=== PATIENT | male | born 1930 | race Caucasian/White ===

== ENCOUNTER 2016-04-26 23:55 | Inpatient (IN) | payer MEDICARE, OTHER ==
--- NOTE | ~2016-04-26 | DS ---
Unit #: [id number] #: [id number] Patient: RICO COVARRUBIAS [id number] [address] [address] [id number] I MR#: [id number] NAME: RICO COVARRUBIAS ROOM: 566 Age: 85 Sex: M Admission Date: 04/27/2016 : 1930 Discharge Date: 04/30/2016 Attending Physician: Joo Stallworth M.D. Primary Care Physician: Skyla Deras M.D. DISCHARGE SUMMARY ADMITTING DIAGNOSES 1. Tfyqt-zj-sqyalmj renal failure secondary to obstructive uropathy. 2. Xnkhf-mt-kqewflp renal failure. 3. Possible sepsis. 4. History of cerebrovascular accident. DISCHARGE DIAGNOSES 1. Escherichia coli urinary tract infection, complicated, stable. 2. Acute kidney injury on chronic kidney disease stage 2 to 3. 3. Chronic immobility. 4. Mild acute anemia. 5. Elevated INR, resolved. 6. Atrial fibrillation with controlled ventricular rate. 7. Severe sepsis upon admission per sepsis management protocol. 8. Bilateral ureteral stones, status post placement of bilateral ureteral stents and chronic suprapubic catheter. 9. 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 10. Subtherapeutic INR. CONSULTS 1. Brett Pickard M.D., nephrology. 2. Mathew Cormier M.D., urology service. 3. Speech therapist. PROCEDURES Cystoscopy, bilateral ureteral stent placement for bilateral ureteral stones and bilateral hydronephrosis. CONDITION Stable. DIAGNOSTIC STUDIES LABORATORY: WBC 10.6, hemoglobin 12.5, hematocrit 38.8, sodium 137, potassium 3.6, chloride 112, CO2 24, glucose 90, BUN 22, creatinine 1.2, calcium is 7.8, INR 1.4, PT 15.4. Urine culture final E. coli greater than 100,000 CFU per mL sensitive to ceftriaxone. Blood cultures preliminary x2 no growth after 24 hours. Final blood cultures pending at this time. Ammonia 35. Lactic acid on admission 2.1. IMAGING: On 04/27/16 CT of the head. Indication: Mental status changes with increasing confusion. Impression: Motion degraded but no acute intracranial abnormalities. There is atrophy with chronic small vessel Unit #: [id number] #: [id number] Patient: RICO COVARRUBIAS ischemic disease in the white matter. Ventriculomegaly probably secondary to central atrophy rather than normal pressure hydrocephalus. No basis for comparison. CT of the abdomen and pelvis. Impression: Numerous bilateral nonobstructing stones in the kidneys. A small 3.0 mm stone in the proximal ureter on the right and numerous small stones in the left mid ureter. Mild hydronephrosis and hydroureter on both sides. Stones are not clearly the point of obstruction. May be due to abnormal appearing urinary bladder. Suprapubic bladder catheter decompressed in the bladder. Bladder demonstrates thick wall and fairly intense surrounding fat stranding compatible with cystitis. Gas bubbles noted in the bladder and a few in the right renal collecting system. Ascending infection is not excluded although these bubbles could be due to the catheter. Correlate urinalysis results and physical exam findings. Cholelithiasis. Diffuse colonic diverticulosis without definitive evidence for diverticulitis. Normal appendix. Enlarged prostate. Diffuse atherosclerotic disease. Portable chest exam 04/27/16. Impression: Cardiomegaly with CABG change. Minimal atelectasis or infiltrate noted in the bases. DIET Speech therapist recommendation for diet given communication deficits and history of stroke: Regular diet consistency with thin liquids. Upright for all oral intake. Medications whole in applesauce. Advised patient to eat slowly. DISCHARGE MEDICATIONS 1. Tylenol 500 mg p.o. b.i.d. p.r.n. pain. 2. Coumadin 3 mg p.o. q.h.s. Start 05/01/16 as dose will be given prior to discharge from hospital today with target INR of 2.0 to 3.0. 3. Zoloft 50 mg p.o. q.a.m. 4. Lorazepam 1 mg p.o. q.h.s. 5. Amlodipine besylate 5 mg p.o. q.h.s. 6. Milk of magnesia 30 mL p.o. daily p.r.n. constipation. 7. Omnicef 300 mg p.o. b.i.d. for four more days. 8. Prilosec 20 mg p.o. q.h.s. DISCHARHGE ORDERS 1. Regular diet as directed by speech therapy recommendations as dictated above. 2. Patient is to have a PT/INR drawn tomorrow [facility]. The results are to be called to the patient's admitting physician for further PT/INR and Coumadin management orders. This includes an order for tomorrow's dose of Coumadin. HOSPITAL COURSE The patient is an 85-year-old male with history of multiple medical issues including history of CVA with aphasia and right-sided weakness, who presented to [facility] on the date of admission after having been transferred from [facility], where he is a resident, for altered mental status and lethargy. Patient was evaluated in the emergency department and found to be in acute renal failure as well as possible obstructive uropathy. Patient also met criteria for severe sepsis on admission per sepsis management protocol as his lactic acid was greater than 2.0 at 2.1. Sepsis management protocol was initiated. Patient was started on IV vancomycin with pharmacy to dose. He also received IV Zosyn and Rocephin Unit #: [id number] #: [id number] Patient: RICO COVARRUBIAS in the emergency department. Prior to initiation of IV antibiotic therapy blood cultures and urine culture were collected. Preliminary blood cultures returned with no growth and final blood cultures are pending at this time. Urine culture returned positive for E. coli greater than 100,000 CFU per mL sensitive to. Dr. Cormier was consulted from service and patient was taken to the operating room for bilateral ureteral stent placement. He tolerated the procedure well. He has been changed to p.o. Omnicef as per med rec. He is to continue this medication for four additional days per order of Dr. Stallworth. The patient was evaluated by the speech therapist on two occasions for history of CVA with aphasia and suspicion of dysphagia. At this time the patient is tolerating a regular diet based on the above speech therapy restrictions and recommendations. These are to continue at the rehab facility to decrease risk of aspiration. Patient experienced acute kidney injury on chronic kidney disease 2 to 3 secondary to severe sepsis and ureteral obstruction with urinary tract infection. The patient was evaluated by Dr. Pickard with the renal service. The patient's renal function has improved status post ureteral stent placement and treatment of urinary tract infection. The patient is evaluated by Dr. Pickard today and has been cleared for discharge from his standpoint. Mild acute anemia. The patient's hemoglobin and hematocrit are stable today. Patient has a history of afib with controlled ventricular rate and is on Coumadin chronically. The patient's INR was elevated at the time of admission at 3.2. The patient's Coumadin has been held. INR today is 1.4. Patient will receive a dose of Coumadin 3 mg p.o. prior to discharge today. PT/INR has been ordered to be collected tomorrow at rehab. The patient's physician at rehab is to be called with PT/INR results for further orders for daily Coumadin dose and PT/INR collections. Patient's vital signs and lab work are stable. He is tolerating food and fluids at this time. He has been evaluated by Dr. Stallworth and cleared for discharge back to [facility] where he is a resident at this time. Please refer to Alex and Annabel for complete details. Dictated by... Melany Mix A.P.R.N. for Melissa Mota/renita TD: 04/30/2016 16:05 JOB #: [id number] Unit #: [id number] #: [id number] Patient: RICO COVARRUBIAS DISCHARGE SUMMARY X Melany Mix [employer] X DISCHARGE SUMMARY
--- NOTE | ~2016-04-26 | EKG ---
PATIENT: RICO COVARRUBIAS UNIT #: [id number] Ventricular Rate: 87 BPM Atrial Rate: 104 BPM QRS Duration: 98 ms Q-T Interval: 364 ms QTC Calculation(Bezet): 438 ms Calculated R [place]: -18 degrees Calculated T [place]: -25 degrees Diagnosis Line: Atrial fibrillation Diagnosis Line: Septal infarct (cited on or before 21-NOV-2014) Diagnosis Line: Inferior infarct , age undetermined Diagnosis Line: Abnormal ECG Diagnosis Line: When compared with ECG of 21-NOV-2014 12:27, Diagnosis Line: Inferior infarct is now Present Diagnosis Line: Diagnosis Line: Confirmed by ZOE COLIN MD ([id number]) on Diagnosis Line: 04/30/2016 3:58:27 PM INTERPRETING MD: DIXIE DUBON
--- NOTE | ~2016-04-26 | CT4 ---
[facility] A Service of [facility] & [facility] RADIOLOGY TEXT RESULTS PATIENT: RICO COVARRUBIAS LOCATION: [facility] 566-01 : 31 UNIT #: [id number] AGE: [address]: Skyla Deras MD SEX: M ORDER DR: [id number] [facility] [address] [place], [place] [address] [id number] I MR#: [id number] Acc #: [id number] NAME: RICO COVARRUBIAS : 1930 SEX: M STUDY DATE/TIME: 04/27/2016 01:51 UNIT: [facility] ROOM: [facility] STUDY DESCRIPTION: CT Abd and Pelv Wo Cont Attending Physician: Skyla Deras M.D. Ordering Physician: Wolf Kumari M.D. Primary Care Physician: Skyla Deras M.D. MEDICAL IMAGING REPORT This report is preliminary unless electronic signature is present EXAM CT abdomen and pelvis, 04/27 at 01:51 INDICATION Hematuria and increasing weakness and lethargy today. TECHNIQUE Axial noncontrast images were obtained through the abdomen and pelvis. Multiplanar reformats were obtained. This CT exam was performed with one or more of the following radiation dose reduction techniques: automatic exposure control, adjustment of mA and/or kV according to patient size, and iterative reconstruction. COMPARISON None FINDINGS ABDOMEN: There is some mild atelectasis in the lung bases. Heart is enlarged. The gallbladder is contracted around numerous stones. No biliary obstruction is seen. There is atherosclerotic disease. Multiple bilateral renal stones are present. One of the larger on the right side measures up to 11.0 mm in size. Multiple smaller stones are noted in the left kidney, including stones within the left renal pelvis. There is mild bilateral hydronephrosis and hydroureter. There is a small stone in the right proximal ureter measuring about 3.0 mm in size. Multiple smaller stones are layering dependently in the left mid ureter. These stones cover a craniocaudal length of up to 2.6 cm. However, stones on both sides do not appear to be causing the hydronephrosis. This hydronephrosis may have been secondary to a bladder outlet obstruction. Of note, the patient does have a decompressed urinary bladder from a suprapubic catheter. It appears well positioned. Bilateral renal cysts are present. Unenhanced solid organs are otherwise normal. Exam is motion degraded and STS. [facility] A Service of [facility] & [facility] RADIOLOGY TEXT RESULTS PATIENT: RICO COVARRUBIAS LOCATION: [facility] 566-01 : 31 UNIT #: [id number] AGE: [address]: Skyla Deras MD SEX: M ORDER DR: there is colonic diverticulosis without focal diverticulitis. Small bowel grossly normal. PELVIS: There is diffuse sigmoid diverticulosis without convincing acute diverticulitis. The appendix is normal as is the distal small bowel. There is a fat-containing umbilical hernia. Urinary bladder is abnormal demonstrating wall thickening and adjacent fat stranding consistent with cystitis. The bladder is currently decompressed by a suprapubic catheter. Multiple gas bubbles in the bladder could be due to infection or could have been introduced via the catheter. Correlate with urinalysis results. Fairly pronounced fat stranding in the left lower quadrant may also be related to the bladder rather than the GI tract. There is extensive degenerative disease in the lumbar spine with an old L1 compression fracture. IMPRESSION 1. There are numerous bilateral nonobstructing stones in the kidneys. Additionally, there is a small 3.0 mm stone in the proximal ureter on the right and there are numerous small stones in the left mid ureter. There is mild hydronephrosis and hydroureter on both sides, but the stones are not clearly the point of obstruction. This may be due to the abnormal appearing urinary bladder. 2. There is a suprapubic bladder catheter which is decompressed in the bladder. However, the bladder demonstrates a thick wall and there is fairly intense surrounding fat stranding compatible with cystitis. Additionally, gas bubbles are noted in the bladder and there are few gas bubbles in the right renal collecting system. Ascending infection is not excluded although these bubbles could be due to the catheter. Correlate urinalysis results and physical exam findings. 3. Cholelithiasis. 4. Diffuse colonic diverticulosis without definitive evidence for diverticulitis. Normal appendix. 5. Enlarged prostate. Correlate with physical exam findings and PSA values. 6. Diffuse atherosclerotic disease. Dictated by... Marques Gay Jr., M.D. THIS IS AN ELECTRONICALLY VERIFIED REPORT Marques Gay Jr., M.D. at 04/27/2016 11:00 PM DIAZ/lubna TD: 04/27/2016 16:54 JOB #: [id number] MEDICAL IMAGING REPORT COPY
--- NOTE | ~2016-04-26 | CT71 ---
[facility] A Service of [facility] & [facility] RADIOLOGY TEXT RESULTS PATIENT: RICO COVARRUBIAS LOCATION: [facility] 566-01 : 31 UNIT #: [id number] AGE: [address]: Skyla Deras MD SEX: M ORDER DR: [id number] [facility] [address] [place], [place] [address] [id number] I MR#: [id number] Acc #: [id number] NAME: RICO COVARRUBIAS : 1930 SEX: M STUDY DATE/TIME: 04/27/2016 01:53 UNIT: [facility] ROOM: [facility] STUDY DESCRIPTION: CT Head Wo Contrast Attending Physician: Skyla Deras M.D. Ordering Physician: Wolf Kumari M.D. Primary Care Physician: Skyla Deras M.D. MEDICAL IMAGING REPORT This report is preliminary unless electronic signature is present EXAM Head CT, 04/27 at 01:53 INDICATION Mental status changes and increasing confusion today. TECHNIQUE This CT exam was performed with one or more of the following radiation dose reduction techniques: automatic exposure control, adjustment of mA and/or kV according to patient size, and iterative reconstruction. FINDINGS Axial images were obtained from the base to the vertex without contrast. No comparison. The study is motion degraded. There is generalized atrophy. Ventriculomegaly is probably secondary to centralized atrophy. Advanced chronic small vessel ischemic changes are present in the white matter. There is no acute infarct or hemorrhage. There are no masses. There is an old left parietal infarct. Atherosclerotic calcifications are noted in the vertebral arteries and carotid siphons. No skull fracture. IMPRESSION Motion degraded exam, but no acute intracranial abnormalities are seen. There is atrophy with chronic small vessel ischemic disease in the white matter. Ventriculomegaly is probably secondary to central atrophy rather than normal pressure hydrocephalus. I have no basis for comparison. Dictated by... Marques Gay Jr., M.D. THIS IS AN ELECTRONICALLY VERIFIED REPORT Marques Gay Jr., M.D. at 04/27/2016 11:00 PM STS. [facility] A Service of [facility] & [facility] RADIOLOGY TEXT RESULTS PATIENT: RCIO COVARRUBIAS LOCATION: [facility] 566-01 : 31 UNIT #: [id number] AGE: [address]: Skyla Deras MD SEX: M ORDER DR: Edilia TD: 04/27/2016 16:52 JOB #: [id number] MEDICAL IMAGING REPORT COPY
--- NOTE | ~2016-04-26 | CO ---
Unit #: [id number] #: [id number] Patient: RICO COVARRUBIAS [id number] [place], [place] [address] [id number] I MR#: [id number] NAME: RICO COVARRUBIAS ROOM: 50244 Age: 85 Sex: M Admission Date: 04/27/2016 : 1930 Attending Physician: Skyla Deras M.D. Primary Care Physician: Skyla Deras M.D. Consultation Date: 04/27/2016 CONSULTATION REPORT REASON FOR CONSULTATION Urosepsis, ureteral stones. HISTORY OF PRESENT ILLNESS Mr. Covarrubias is an 85-year-old male who presented to the emergency room with mental status changes. Workup in the ER demonstrated an elevated white blood cell count to 29.0, and elevated lactic acid level of 2.3, and elevated creatinine of 2.1 and concern for urosepsis. Of note, the patient has a history of an indwelling suprapubic catheter. He also has a history of CVA, aphasia, and CABG. He is a poor historian, so the history was obtained from family members. PAST MEDICAL HISTORY 1. CVA (aphasia). 2. History of CABG. 3. Neurogenic bladder. 4. History of CVA with right-sided paralysis. 5. Current UTIs. 6. Urolithiasis. 7. History of laser ablation of the prostate. 8. Suprapubic tube placement in 2014. SOCIAL HISTORY Former smoke. Never alcohol consumption. Lives in half-way. MEDICATIONS AND ALLERGIES Per the ER intake sheet. PHYSICAL EXAMINATION VITAL SIGNS: Pulse 69, O2 sat 96%. GENERAL: Awake, answering questions normally. ABDOMEN: Soft, nontender, nondistended. SP tube in place. Urine yellow and clear. EXTREMITIES: Demonstrate minimal edema. No cyanosis. LABS As above. IMAGING STUDIES Report was reviewed audibly and details were described above. ASSESSMENT AND PLAN 1. 85-year-old man with a history of neurogenic bladder and indwelling SP tube, found to be in urosepsis with bilateral ureteral stones with Unit #: [id number] #: [id number] Patient: RICO COVARRUBIAS bilateral ureteral stones and possible hydronephrosis bilaterally. I had a discussion with the patient's family regarding treatment options including observation versus cystoscopy and ureteral stent placement. We discussed that should we fail to place stents, and obstructive pyelonephritis exists, this could be a lethal infection. The family expressed that they would like to have ureteral stents placed, and we will proceed with that procedure. 2. Continue Zosyn. 3. NPO. 4. (1) cystoscopy and bilateral ureteral stent placement. Dictated by... Melissa Conrad/kristi TD: 04/27/2016 12:27 JOB #: [id number] CONSULTATION REPORT X X CONSULTATION REPORT
--- NOTE | ~2016-04-26 | CR72 ---
[facility] A Service of [facility] & [facility] RADIOLOGY TEXT RESULTS PATIENT: RICO COVARRUBIAS LOCATION: [facility] 566-01 : 31 UNIT #: [id number] AGE: [address]: Skyla Deras MD SEX: M ORDER DR: [id number] [facility] [address] [place], [place] [address] [id number] I MR#: [id number] Acc #: [id number] NAME: RICO COVARRUBIAS : 1930 SEX: M STUDY DATE/TIME: 04/27/2016 00:20 UNIT: [facility] ROOM: [facility] STUDY DESCRIPTION: CR Chest Single View Portable Attending Physician: Skyla Deras M.D. Ordering Physician: Wolf Kumari M.D. Primary Care Physician: Skyla Deras M.D. MEDICAL IMAGING REPORT This report is preliminary unless electronic signature is present EXAM Portable chest. DATE OF EXAM 04/27/2016, 0020 hours. INDICATIONS Shortness of air and weakness for the last 2 days. FINDINGS AP portable views of the chest were obtained. No comparison. Heart is enlarged. Patient is status post CABG. Minimal atelectasis or infiltrate in the bases. The lungs otherwise are clear. There is no pneumothorax. IMPRESSION Cardiomegaly with CABG change. Minimal atelectasis or infiltrate noted in the bases. Dictated by... Marques Gay Jr., M.D. THIS IS AN ELECTRONICALLY VERIFIED REPORT Marques Gay Jr., M.D. at 04/27/2016 11:00 PM DIAZ/bharat TD: 04/27/2016 16:38 JOB #: [id number] MEDICAL IMAGING REPORT COPY
--- NOTE | ~2016-04-26 | HP ---
Unit #: [id number] #: [id number] Patient: RICO COVARRUBIAS [id number] [address] [id number] I MR#: [id number] NAME: RICO COVARRUBIAS ROOM: 10087 Age: 85 Sex: M Admission Date: 04/26/2016 : 1930 Attending Physician: Skyla Deras M.D. Primary Care Physician: Skyla Deras M.D. HISTORY AND PHYSICAL CHIEF COMPLAINT 1. Altered mental status. 2. Hematuria. HISTORY OF PRESENT ILLNESS The patient is an 85-year-old male with a history of coronary artery disease and hypertension who basically had altered mental status and was lethargic. He had blood in his urine. He was seen and evaluated in the emergency room and was found to be in acute renal failure. He was seen by nephrology. He had acute on chronic renal failure. He was started on IV antibiotics. Urology consult was obtained, and he is currently status post cystoscopy with ureteral stent placement. The patient is unable to provide a history at this time. Surgery has been uneventful. PAST MEDICAL HISTORY 1. Coronary artery disease. 2. Hypertension. 3. Coronary artery bypass graft. 4. History of kidney stones in the past. 5. History of CVA. 6. Atrial fibrillation. 7. Depression. 8. Benign prostatic hypertrophy. 9. Anxiety. 10. Anticoagulation with Coumadin for his atrial fibrillation. ALLERGIES No known drug allergies. MEDICATIONS 1. Zoloft 50 mg p.o. every morning. 2. Amlodipine 5 mg p.o. at bedtime. 3. Tylenol Extra Strength Arthritis. 4. Prilosec 20 mg p.o. at bedtime. 5. Lorazepam 1 mg at bedtime. 6. Coumadin 3 mg p.o. at bedtime. FAMILY HISTORY Family history is noncontributory to the presenting complaint. SOCIAL HISTORY No tobacco use, alcohol use or illicit drug use. The patient resides in a [facility] facility. Unit #: [id number] #: [id number] Patient: RICO COVARRUBIAS CODE STATUS His code status is [id number]. PHYSICAL EXAMINATION GENERAL: He was comfortable. Not in acute distress at this time. VITAL SIGNS: Blood pressure was 96/60, pulse 79, respiratory rate 24, temperature 99.1. HEENT: Pupils were equal and reactive to light and accommodation. NECK: Supple without thyromegaly. ACCOUNTANCY PROFESSOR: Patient recently postop. Central nervous system exam was limited. CHEST: (1) . ABDOMEN: Soft, nondistended, nontender. EXTREMITIES: No edema. SKIN: Warm and dry with no rashes. LYMPHATIC: No large peripheral lymphadenopathy that I could appreciate. DIAGNOSTIC DATA LABORATORY: He had a lactic acid of 2.3. He had chemistry - Glucose of 110, sodium 142, potassium 4.1, BUN 50, creatinine 2.1, calcium level 8.1. He had a CBC - WBC 29, hemoglobin 13.4, hematocrit 42.9, platelet count of 180. CARDIOVASCULAR: He had EKG, which showed atrial fibrillation. He had a head CT, which was negative. CT of the abdomen and pelvis showed kidney stones bilaterally. ASSESSMENT AND PLAN 1. Acute on chronic renal failure secondary to obstructive uropathy. Patient is status post cystoscopy with bilateral ureteral stent placement. Management will be immediately postop by urology. 2. Acute on chronic renal failure. Will follow his renal function. Nephrology is on board at this time. 3. GI prophylaxis. Will put him on Protonix 40 mg IV daily. 4. DVT prophylaxis. Will put him on SCDs while he is in bed. Will check a PT-INR tomorrow. 5. Possible sepsis. He is currently covered on broad-spectrum antibiotics. Lactic acid, though, is elevated. We will check a CBC and a BNP in the morning. 6. History of CVA. Will follow him clinically. Dictated by Melissa Cartwright/joselyn TD: 04/27/2016 13:15 JOB #: [id number] Unit #: [id number] #: [id number] Patient: RICO COVARRUBIAS HISTORY AND PHYSICAL X Skyla Deras MD HISTORY AND PHYSICAL
--- NOTE | ~2016-04-26 | CO ---
Unit #: [id number] #: [id number] Patient: RICO MONTERO [id number] [facility]. [place], [place] [address] [id number] MR#: [id number] NAME: RICO MONTERO ROOM: 566 Age: 85 Sex: M Admission Date: 04/27/2016 : 1930 Attending Physician: Skyla Deras M.D. Primary Care Physician: Skyla Deras M.D. Consultation Date: 04/27/2016 CONSULTATION REPORT REASON FOR CONSULTATION Renal failure. Thank you very much for asking us to see this patient in consultation. HISTORY OF PRESENT ILLNESS Mr. Karsten Montero is an 89-year-old male, who presented to the hospital from a half-way apparently with some increased confusion. Upon presentation, he was noted to have an increased BUN and creatinine 15 and 2.1. The patient in reviewing his records in 10/2014, he had a creatinine of 1.2, and 11/2014 of 1.8. He has had problems including prostate CA and has a suprapubic catheter now, seen and followed by Dr. Cormier. He currently is arousable. He does have aphasia from previous stroke. He denies any chest pain or shortness of breath. He has questionable abdominal discomfort. His suprapubic catheter has very cloudy looking urine currently. 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 ALLERGIES No known drug allergies. SOCIAL HISTORY He lives in a half-way. FAMILY HISTORY Unable to obtain. REVIEW OF SYSTEMS Very difficult to assess. He is not having any severe headaches and I am aware of he is not coughing anything up. He is not having any chest pain. No significant shortness of breath, questionable abdominal pain. MEDICATIONS Include Norvasc 5 mg a day, Protonix daily, Zoloft, Ativan. Here, he was started on vancomycin and Zosyn as well as fluids. His Coumadin is on hold. PHYSICAL EXAMINATION Unit #: [id number] #: [id number] Patient: RICO MONTERO GENERAL: He is alert. VITAL SIGNS: T-max 99.9, pulse 67 to 90, blood pressure 93 to 111 over 60 to 67. HEENT: Normocephalic and atraumatic. Pupils are equal, round, and reactive to light. Extraocular muscles are intact. Hearing seems fairly normal. His mouth is very dry. No erythema. He has some drooping in his face on his right. NECK: Supple. No adenopathy. CARDIAC: Irregular rhythm without a rub. No S3 or S4. LUNGS: Right side is clear. Left side, he has some rales at his base. ABDOMEN: Bowel sounds positive. Nontender, soft. Suprapubic catheter noted. EXTREMITIES: He has no lower extremity swelling. His pulses are intact in lower extremities. JOINTS: No joint pain or joint swelling. SKIN: No rashes. NEUROLOGIC: Again weakness on his right side. GENITOURINARY: Again suprapubic catheter noted. DIAGNOSTIC STUDIES LABORATORY RESULTS: Shows sodium 142, potassium 4.1, chloride is 111, bicarb is 23, BUN is 15, creatinine 2.1 with a glucose of 110, calcium is 8.1, albumin is 3.2. Hemoglobin is 15.8, white count 31,200, platelets 223,000. His UA shows specific gravity of 1.028, 3+ protein, positive bilirubin, too numerous to count rbc's, too numerous to count wbc's, 3+ bacteria. ASSESSMENT AND PLAN 1. Acute on questionable chronic kidney disease, stage 3, certainly with increased creatinine now. He does appear to be volume depleted on exam. I agree with IV fluids; although, we will remove potassium in his fluids and we will follow his I's and O's. Certainly, if his renal function does not improve, the fluids will consider further workup and treatment. Certainly, it could be severe urinary tract infection as well as possible sepsis contributing to his acute renal failure. Again, continue fluids. We will check labs in the morning and we will continue to follow. 2. History of prostate cancer, suprapubic cath, urinary tract infection, Genitourinary to see. On Zosyn and vanc for now. Certainly, whenever if he felt that vancomycin can be discontinued, that I would prefer that due to his risk of nephrotoxicity. 3. History of atrial fib, on chronic Coumadin. INR is 3.2. Coumadin is on hold. Further treatment per primary. 4. History of hypertension, now blood pressure is low. We will hold certainly Norvasc for now. 5. History of cerebrovascular accident with aphasia. 6. Rule out sepsis. Dictated by.Melissa Lemus/karo TD: 04/27/2016 16:50 JOB #: [id number] Unit #: [id number] #: [id number] Patient: RICO MONTERO CONSULTATION REPORT X Rocio Pickard MD X CONSULTATION REPORT
[~2016-04-26 23:55] MED LIST: ACETAMINOPHEN PO; AMLODIPINE BESYL5 MG PO; COUMADIN PO; LORAZEPAM1 MG PO; MILK OF MAGNESIA PO; PRILOSEC20 MG PO; TYLENOL EXTRA500 M1 PO; ZOLOFT50 MG PO
[2016-04-27 00:47] LABS: BASOPHIL# 0.1 X10e3 (0-0.3); BASOPHIL% 0.3 % (0-2.5); DIFF IND YES; HEMATOCRIT 48.9 % (38.0-50.0); HEMOGLOBIN 15.8 gm/dL (13.0-16.0); LYMPHOCYTE# 0.8 X10e3 (1.0-3.5); LYMPHOCYTE% 2.6 % (17.0-45.0); MEAN CELL VOLUME 85.4 FL (83-96); MEAN CORPUSCULAR HEMOGLOBIN 27.6 PG (28-34); MEAN CORPUSCULAR HGB CONC 32.4 g/dL (30-36); MEAN PLATELET VOLUME 9.2 FL (6.5-11.5); MONOCYTE# 1.2 X10e3 (0-1.0); MONOCYTE% 3.8 % (3.0-12.0); NEUTROPHIL# 29.1 X10e3 (1.5-7.1); NEUTROPHIL% 93.3 % (40-75); PLATELET COUNT 223 X10e3 (140-420); RED BLOOD COUNT 5.72 X10e (3.90-5.60); RED CELL DISTRIBUTION WIDTH 14.8 % (11.0-15.5); WHITE BLOOD COUNT 31.2 X10e3 (4.0-10.5)
[2016-04-27 00:49] LABS: POC - CKMB 2.8 ng/mL (0.0-7.9); POC - TROPONIN <0.05 ng/mL (<=0.05)
[2016-04-27 01:00] LABS: INR 3.2; PARTIAL THROMBOPLASTIN TIME 50.2 SECONDS (23.5-31.3); PROTHROMBIN TIME (PATIENT) 34.6 SECONDS (9.6-11.5)
[2016-04-27 01:03] LABS: ALBUMIN SERUM 3.6 g/dL (3.5-5.0); BILIRUBIN, DIRECT 0.2 mg/dL (0.0-0.2); BILIRUBIN,INDIRECT 0.8 mg/dL (0.0-0.9); BUN/CREATININE RATIO 25.71; CREATININE SERUM 2.1 mg/dL (0.6-1.4); GLOM FILT RATE Estimated 32.1 mL/min (>60)
[2016-04-27 01:10] LABS: PLATELET ESTIMATE NORMAL (NORMAL)
[2016-04-27 01:20] LABS: URINE SOURCE CLEAN CATCH
[2016-04-27 01:26] LABS: URINE APPEARANCE TURBID; URINE BLOOD 3+ (NEG); URINE COLOR ORANGE; URINE GLUCOSE NEG (NEG); URINE KETONE TRACE (NEG); URINE LEUKOCYTE ESTERASE 3+ (NEG); URINE NITRATE NEG (NEG); URINE PROTEIN 3+ (NEG); URINE SPECIFIC GRAVITY 1.028 (1.003-1.035)
[2016-04-27 01:29] LABS: CULTURE INDICATED? YES; URBCS1 AUWI INNUM /[HPF] (0-2); URINE BACTERIA AUWI 3+ (NEGATIVE); URINE SQUAMOUS EPITHELIAL CELL FEW /[HPF]; UWBCS1 AUWI INNUM (0-5)
[2016-04-27 01:37] LABS: URINE BILIRUBIN POS (NEG)
[2016-04-27 03:13] LABS: POC - TROPONIN <0.05 ng/mL (<=0.05)
[2016-04-27 04:43] LABS: BASOPHIL# 0.1 X10e3 (0-0.3); BASOPHIL% 0.4 % (0-2.5); HEMATOCRIT 42.9 % (38.0-50.0); LYMPHOCYTE# 1.3 X10e3 (1.0-3.5); LYMPHOCYTE% 4.5 % (17.0-45.0); MEAN CELL VOLUME 86.4 FL (83-96); MEAN CORPUSCULAR HEMOGLOBIN 26.9 PG (28-34); MEAN CORPUSCULAR HGB CONC 31.1 g/dL (30-36); MEAN PLATELET VOLUME 8.9 FL (6.5-11.5); MONOCYTE% 3.3 % (3.0-12.0); NEUTROPHIL# 26.6 X10e3 (1.5-7.1); NEUTROPHIL% 91.8 % (40-75); PLATELET COUNT 180 X10e3 (140-420); RED BLOOD COUNT 4.97 X10e (3.90-5.60); RED CELL DISTRIBUTION WIDTH 14.8 % (11.0-15.5)
[2016-04-27 04:44] LABS: DIFF IND NO; HEMOGLOBIN 13.4 gm/dL (13.0-16.0)
[2016-04-27 04:48] LABS: INR 3.3; PROTHROMBIN TIME (PATIENT) 36.4 SECONDS (9.6-11.5)
[2016-04-27 04:58] LABS: BUN/CREATININE RATIO 23.8; CALCIUM SERUM 8.1 mg/dL (8.4-10.2); CREATININE SERUM 2.1 mg/dL (0.6-1.4); GLOM FILT RATE Estimated 32.1 mL/min (>60); POTASSIUM 4.1 mmol/L (3.5-5.1)
[2016-04-28 06:28] LABS: HEMATOCRIT 38.2 % (38.0-50.0); HEMOGLOBIN 12.1 gm/dL (13.0-16.0); MEAN CELL VOLUME 86.8 FL (83-96); MEAN CORPUSCULAR HEMOGLOBIN 27.4 PG (28-34); MEAN CORPUSCULAR HGB CONC 31.6 g/dL (30-36); MEAN PLATELET VOLUME 9.2 FL (6.5-11.5); RED BLOOD COUNT 4.41 X10e (3.90-5.60); RED CELL DISTRIBUTION WIDTH 14.9 % (11.0-15.5); WHITE BLOOD COUNT 17.6 X10e3 (4.0-10.5)
[2016-04-28 06:38] LABS: INR 2.9; PROTHROMBIN TIME (PATIENT) 31.2 SECONDS (9.6-11.5)
[2016-04-28 07:13] LABS: ALBUMIN SERUM 2.3 g/dL (3.5-5.0); BILIRUBIN,TOTAL 0.9 mg/dL (0.2-2.0); CALCIUM SERUM 8.1 mg/dL (8.4-10.2); CREATININE SERUM 1.5 mg/dL (0.6-1.4); GLOM FILT RATE Estimated 47.4 mL/min (>60); MAGNESIUM 1.9 mg/dL (1.6-3.0); PHOSPHOROUS 2.9 mg/dL (2.5-4.6); POTASSIUM 3.8 mmol/L (3.5-5.1); PROTEIN TOTAL SERUM 5.4 g/dL (6.0-8.3)
[2016-04-29 06:38] LABS: HEMATOCRIT 39.4 % (38.0-50.0); HEMOGLOBIN 12.3 gm/dL (13.0-16.0); MEAN CELL VOLUME 86.6 FL (83-96); MEAN CORPUSCULAR HEMOGLOBIN 26.9 PG (28-34); MEAN CORPUSCULAR HGB CONC 31.1 g/dL (30-36); RED BLOOD COUNT 4.55 X10e (3.90-5.60); RED CELL DISTRIBUTION WIDTH 15.1 % (11.0-15.5); WHITE BLOOD COUNT 11.9 X10e3 (4.0-10.5)
[2016-04-29 06:55] LABS: INR 2.1; PROTHROMBIN TIME (PATIENT) 22.2 SECONDS (9.6-11.5)
[2016-04-29 07:27] LABS: CREATININE SERUM 1.4 mg/dL (0.6-1.4); GLOM FILT RATE Estimated 51.3 mL/min (>60); POTASSIUM 4.3 mmol/L (3.5-5.1)
[2016-04-29 07:28] LABS: BUN/CREATININE RATIO 24.28
[2016-04-29 07:29] LABS: CALCIUM SERUM 8.2 mg/dL (8.4-10.2)
[2016-04-30 02:20] LABS: HEMATOCRIT 38.8 % (38.0-50.0); HEMOGLOBIN 12.5 gm/dL (13.0-16.0); MEAN CELL VOLUME 84.9 FL (83-96); MEAN CORPUSCULAR HEMOGLOBIN 27.3 PG (28-34); MEAN CORPUSCULAR HGB CONC 32.2 g/dL (30-36); MEAN PLATELET VOLUME 8.8 FL (6.5-11.5); RED BLOOD COUNT 4.57 X10e (3.90-5.60); RED CELL DISTRIBUTION WIDTH 14.7 % (11.0-15.5); WHITE BLOOD COUNT 10.6 X10e3 (4.0-10.5)
[2016-04-30 02:46] LABS: BLOOD UREA NITROGEN 22 mg/dL (9-23); BUN/CREATININE RATIO 18.33; CALCIUM SERUM 7.8 mg/dL (8.4-10.2); CARBON DIOXIDE 24 mmol/L (22-31); CHLORIDE 112 mmol/L (100-111); CREATININE SERUM 1.2 mg/dL (0.6-1.4); GLOM FILT RATE Estimated ABOVE60 mL/min (>60); GLUCOSE FASTING 90 mg/dL (70-110); POTASSIUM 3.6 mmol/L (3.5-5.1); SODIUM 137 mmol/L (135-145)
[2016-04-30 14:08] LABS: INR 1.4; PROTHROMBIN TIME (PATIENT) 15.4 SECONDS (9.6-11.5)
== END 2016-04-30 20:30 | DRG 872 ==
LOC: CED 23:55 → CEDOF 04-27 03:30 → C5C 04-27 13:40
PROVIDERS: Emergency Medicine; Family Medicine; Internal Medicine; Internal Medicine Nephrology; Student in an Organized Health Care Education/Training Program; Urology
PROC: 0T788DZ Dilation of Bilateral Ureters with Intraluminal Device, Via Natural or Artificial Opening Endoscopic (ICD-10-PCS; principal; 2016-04-27 11:00)
DX: A41.51 Sepsis due to Escherichia coli [E. coli] (principal); N17.9 Acute kidney failure, unspecified; I69.351 Hemiplegia and hemiparesis following cerebral infarction affecting right dominant side; N13.30 Unspecified hydronephrosis; N39.0 Urinary tract infection, site not specified; N20.1 Calculus of ureter; R65.20 Severe sepsis without septic shock; I12.9 Hypertensive chronic kidney disease with stage 1 through stage 4 chronic kidney disease, or unspecified chronic kidney disease; N18.3 Chronic kidney disease, stage 3 (moderate); D64.9 Anemia, unspecified; I48.91 Unspecified atrial fibrillation; I69.320 Aphasia following cerebral infarction; I25.10 Atherosclerotic heart disease of native coronary artery without angina pectoris; Z85.46 Personal history of malignant neoplasm of prostate
CPT/HCPCS: 36415; 70450; 71010; 74176; 80048; 80053; 80076; 80202; 81003; 82140; 82553; 82947; 83605; 83735; 84100; 84484; 85025; 85027; 85610; 85730; 87040; 87086; 87088; 87186; 92526; 92610; 93005; 94760; 96361; 96365; 99285; C1769; C2617; C9113; G8996-GN; G8997-GN; J0696; J1580; J1956; J2543; J3370

== ENCOUNTER 2016-07-30 05:34 | Emergency (ER) | payer OTHER ==
--- NOTE | ~2016-07-30 | CR72 ---
[facility] A Service of [facility] RADIOLOGY TEXT RESULTS PATIENT: RICO COVARRUBIAS LOCATION: [facility] : 31 UNIT #: [id number] AGE: [address]: Marques Parsons MD SEX: M ORDER DR: [id number] [facility] [address] [place], [place] [address] [id number] MR#: [id number] Acc #: [id number] NAME: RICO COVARRUBIAS : 1930 SEX: M STUDY DATE/TIME: 07/30/2016 6:10 [facility]: 05404 STUDY DESCRIPTION: CR Chest Single View Portable Attending Physician: Sumi Dupree M.D. Ordering Physician: Leo Vee D.O. Primary Care Physician: Skyla Deras M.D. MEDICAL IMAGING REPORT This report is preliminary unless electronic signature is present EXAM Portable chest, 07/30/16 HISTORY Shortness of air. Hypotension beginning today. COMPARISON STUDIES 04/27/16 FINDINGS A portable view of the chest was obtained of the lung volumes. Heart size and vascularity are normal, and the lungs are clear. There are sternotomy wires present. IMPRESSION Low lung volumes. No active disease. Dictated by... Haroldo Villa M.D. THIS IS AN ELECTRONICALLY VERIFIED REPORT Haroldo Villa M.D. at 07/30/2016 3:54 PM JOSEPH/krystyna TD: 07/30/2016 13:25 JOB #: [id number] MEDICAL IMAGING REPORT Page 1 of 1 COPY
--- NOTE | ~2016-07-30 | HP ---
Unit #: [id number] #: [id number] Patient: RICO COVARRUBIAS [id number] [place], [place] [address] [id number] MR#: [id number] NAME: RICO COVARRUBIAS ROOM: 05819 Age: 85 Sex: M Admission Date: 07/30/2016 : 1930 Attending Physician: Sumi Dupree M.D. Primary Care Physician: Skyla Deras M.D. HISTORY AND PHYSICAL CHIEF COMPLAINT Change in mental status. HISTORY OF PRESENT ILLNESS This is an 85-year-old with a history of CVA, admitted because of change in mental status. Patient was unresponsive since 2 a.m., sudden onset. EMS bagged the patient. Currently, he is on Venti-mask, actively dying. at bedside. I talked to the niece who is a nurse practitioner. According to the and niece, they only want comfort care. Patient is already DNR and DO NOT INTUBATE. All the lab has been discontinued. All the treatment has been discontinued except for morphine and Ativan. Vital checks have been discontinued as per family request. Apparently his baseline is alert but disoriented. PAST MEDICAL HISTORY 1. History of chronic kidney disease, stage 3. 2. Chronic immobility. 3. Atrial fibrillation. 4. History of CVA with residual aphasia and right sided weakness. 5. History of admission in April for sepsis and urinary tract infection and acute kidney injury. 6. Coronary artery disease. 7. CABG. 8. Kidney stones. 9. Depression. 10. BPH. 11. Anxiety. 12. Anticoagulation with Coumadin for atrial fibrillation. ALLERGIES None. CURRENT HOME MEDICATIONS 1. Zoloft 50 mg p.o. daily. 2. Norvasc 5 mg. 3. Tylenol 500 p.o. b.i.d. 4. Prilosec 20 daily. 5. Lorazepam 1 mg at bedtime. 6. Milk of magnesia 30 mL daily. 7. Coumadin 3.5 at bedtime. FAMILY HISTORY Positive for hypertension. Unit #: [id number] #: [id number] Patient: RICO COVARRUBIAS SOCIAL HISTORY Lives in a jail. No smoking, no alcohol, no drugs. CODE STATUS The patient is DO NOT RESUSCITATE and DO NOT INTUBATE. REVIEW OF SYSTEMS Unobtainable because patient is unresponsive. PHYSICAL EXAMINATION GENERAL: This is an 85-year-old lying on bed, actively dying, tachypneic, tachycardic. VITAL SIGNS: Blood pressure 50/40. Family at bedside, especially and [id number]. HEENT: Pupils sluggishly reacting. Dry mucosa present. NECK: Supple. HEART: S1, S2 heard. Tachycardia present. LUNGS: Decreased breath sounds. Bilateral rhonchi and crackles present. ABDOMEN: Soft, nontender. Bowel sounds present. EXTREMITIES: Trace pedal edema present. NEUROLOGICAL: The patient is unresponsive. Did not assess any neurological exam, especially motor and sensory, as patient is actively dying. DIAGNOSTIC STUDIES LABORATORY DATA: Glucose 76, troponin is 0.05, INR 2.0, WBC 7.7, hemoglobin 17.0, platelets 223, sodium 143, potassium 4.3, creatinine 6.7, albumin 3.2. Urinalysis shows WBC 25-50. ABG - pH 7.15, carbon dioxide 38, oxygen 97. ASSESSMENT AND PLAN 85-year-old admitted because of unresponsiveness: 1. Actively dying: Patient is DO NOT RESUSCITATE and DO NOT INTUBATE. Comfort care only as per family wishes. The patient is on morphine and Ativan. 2. Sepsis. 3. Urinary tract infection. 4. Severe metabolic acidosis. 5. Severe dehydration. 6. Acute renal failure. 7. Acute hypoxic respiratory failure. 8. Unresponsiveness secondary to toxic metabolic encephalopathy. 9. History of cerebrovascular accident with aphasia and right sided weakness. 10. Septic shock with severe hypotension: Blood pressure is 50/40. 11. Continue with comfort care as per family wishes. 12. Urinary tract infection. Dictated by Melissa Reis/harlan Unit #: [id number] #: [id number] Patient: RICO COVARRUBIAS TD: 07/30/2016 11:19 JOB #: [id number] HISTORY AND PHYSICAL Page 1 of 1 X Sumi Dupree MD HISTORY AND PHYSICAL
--- NOTE | ~2016-07-30 | EKG ---
PATIENT: RICO COVARRUBIAS UNIT #: [id number] Ventricular Rate: 98 BPM Atrial Rate: 96 BPM QRS Duration: 90 ms Q-T Interval: 294 ms QTC Calculation(Bezet): 375 ms Calculated R [place]: 12 degrees Calculated T [place]: -56 degrees Diagnosis Line: with PVC's Diagnosis Line: Inferior infarct (cited on or before 21-NOV-2014) Diagnosis Line: Anteroseptal infarct (cited on or before Diagnosis Line: 21-NOV-2014) Diagnosis Line: Abnormal ECG Diagnosis Line: When compared with ECG of 27-APR-2016 00:14, Diagnosis Line: Inverted T waves have replaced nonspecific T wave Diagnosis Line: abnormality in Inferior leads Diagnosis Line: Nonspecific T wave abnormality no longer evident Diagnosis Line: in Anterior leads Diagnosis Line: Inverted T waves have replaced nonspecific T wave Diagnosis Line: abnormality in Lateral leads Diagnosis Line: QT has shortened Diagnosis Line: Confirmed by ROMARIO WEST MD ([id number]) on Diagnosis Line: 07/30/2016 10:12:57 PM INTERPRETING MD: RODRIGUEZ
[2016-07-30 06:05] LABS: POC - CKMB 4.7 ng/mL (0.0-7.9); POC - TROPONIN <0.05 ng/mL (<=0.05)
[2016-07-30 06:09] LABS: ARTERIAL BLOOD GAS ALLEN TEST NORMAL; ARTERIAL BLOOD GAS ART SITE LEFT RADIAL; ARTERIAL BLOOD GAS DELIVERY NON REBREATHER MASK; ARTERIAL DRAW? YES
[2016-07-30 06:21] LABS: BASOPHIL% 0.3 % (0-2.5); EOSINOPHIL% 0.2 % (0.0-7.0); HEMATOCRIT 55.3 % (38.0-50.0); LYMPHOCYTE# 0.8 X10e3 (1.0-3.5); LYMPHOCYTE% 10.1 % (17.0-45.0); MEAN CELL VOLUME 85.9 FL (83-96); MEAN CORPUSCULAR HEMOGLOBIN 26.4 PG (28-34); MEAN CORPUSCULAR HGB CONC 30.8 g/dL (30-36); MEAN PLATELET VOLUME 9.6 FL (6.5-11.5); MONOCYTE% 13.5 % (3.0-12.0); NEUTROPHIL# 5.9 X10e3 (1.5-7.1); NEUTROPHIL% 75.9 % (40-75); RED BLOOD COUNT 6.43 X10e (3.90-5.60); RED CELL DISTRIBUTION WIDTH 15.3 % (11.0-15.5); WHITE BLOOD COUNT 7.7 X10e3 (4.0-10.5)
[2016-07-30 06:29] LABS: URINE APPEARANCE CLOUDY; URINE BILIRUBIN NEG (NEG); URINE BLOOD 4+ (NEG); URINE COLOR BROWN; URINE GLUCOSE NORM (NORM); URINE KETONE NEG (NEG); URINE LEUKOCYTE ESTERASE 3+ (NEG); URINE NITRATE NEG (NEG); URINE PROTEIN 2+ (NEG); URINE SPECIFIC GRAVITY 1.015 (1.003-1.035); URINE UROBILINOGEN NORM (NORM)
[2016-07-30 06:38] LABS: PARTIAL THROMBOPLASTIN TIME 40.4 SECONDS (23.5-31.3); PROTHROMBIN TIME (PATIENT) 21.7 SECONDS (9.6-11.5)
[2016-07-30 06:40] LABS: URINE SOURCE CATH
[2016-07-30 06:45] LABS: ALBUMIN SERUM 3.2 g/dL (3.5-5.0); BILIRUBIN, DIRECT 0.2 mg/dL (0.0-0.2); BILIRUBIN,INDIRECT 1.1 mg/dL (0.0-0.9); BILIRUBIN,TOTAL 1.3 mg/dL (0.2-2.0); BUN/CREATININE RATIO 9.55; CREATININE SERUM 6.7 mg/dL (0.6-1.4); GLOM FILT RATE Estimated 6.9 mL/min (>60); POTASSIUM 4.3 mmol/L (3.5-5.1); PROTEIN TOTAL SERUM 7.6 g/dL (6.0-8.3)
[2016-07-30 06:50] LABS: DIFF IND NO; PLATELET COUNT 223 X10e3 (140-420)
[2016-07-30 06:56] LABS: URINE CRYSTALS TRIPLE PHOSPHATE /[HPF]
[2016-07-30 06:59] LABS: URBCS1 AUWI INNUM /[HPF] (0-2)
[2016-07-30 07:01] LABS: CULTURE INDICATED? YES; URINE BACTERIA AUWI 3+ (NEGATIVE); UWBCS1 AUWI 25-50 (0-5)
[2016-07-30 07:02] LABS: URINE SQUAMOUS EPITHELIAL CELL FEW /[HPF]
[2016-07-30 07:03] LABS: URINE AMORPHOUS SEDIMENT AMORP PHOSPHATES
[2016-07-30 09:02] LABS: ARTERIAL BLOOD GAS PCO2 38.8 mmHg (35.0-45.0); ARTERIAL BLOOD GAS PO2 97.8 mmHg (80.0-100); ARTERIAL BLOOD GAS pH 7.158 (7.350-7.450)
[2016-07-30 09:03] LABS: ARTERIAL BLD GAS O2 SATURATION 94.8 % (90.0-100.0); ARTERIAL BLOOD GAS CARBOXY HB 0.7 %sat (0.0-9.0); ARTERIAL BLOOD GAS HCO3 13.7 mmol/L; ARTERIAL BLOOD GAS MET HB 0.5 %sat (0.0-2.0)
== END 2016-07-30 11:13 | disposition expired ==
LOC: CED 05:34 → CFTX 05:50 → CED 07:45 → CEDOF 07:45 → CFTX 11:13
PROVIDERS: Emergency Medicine
DX: A41.9 Sepsis, unspecified organism (principal); R65.21 Severe sepsis with septic shock; N17.9 Acute kidney failure, unspecified; J96.01 Acute respiratory failure with hypoxia; E87.2 Acidosis; I95.9 Hypotension, unspecified; Z95.1 Presence of aortocoronary bypass graft
CPT/HCPCS: 36415; 36600; 51702; 71010; 80048; 80076; 81003; 82553; 82803; 82947; 83605; 84484; 85025; 85610; 85730; 87040; 87086; 87088; 87186; 93005; 96361; 96365; 96366; 96368; 96375; 99285; J0696; J2250; J2270; J2543; J3370